=== PATIENT | male | born 1985 | race Caucasian/White ===

== ENCOUNTER 2023-08-23 20:03 | Emergency (ER) | payer BC ==
[~2023-08-23] VITALS: Ht 182.9 cm; Wt 93.0 kg
[2023-08-23 20:03] VITALS: BP 139/81; PULSE 115; RESP 20; TEMP 101; O2SAT 98
[2023-08-23] MEDS ORDERED: TORADOL IV STA (20:20)
[2023-08-23] MEDS ORDERED: TORADOL ONE (20:29)
[2023-08-23 20:36] LABS: BASOPHIL % 0.1 % (0.0-0.2); HEMATOCRIT(ML) 34.8 % (37.0-53.0); HEMOGLOBIN 12.1 g/dL (13.9-16.3); LYMPHOCYTES # 0.83 10^3/uL1 (1.0-4.8); LYMPHOCYTES % 11.2 % (24.0-44.0); MEAN CORP HGB 34.9 pg (26-34); MEAN CORP HGB CONCENTRATION 34.8 g/dL (33-36.5); MEAN CORP VOLUME 100.3 fL (78-100); MONOCYTES # 0.9 10^3/uL (0.3-0.8); MONOCYTES % 12.7 % (5.0-12.0); NEUTROPHIL # 5.6 10^3/uL (1.8-7.7); NEUTROPHILS % 75.9 % (41.0-85.0); PLATELET COUNT 244 10^3/uL (150-400); RED BLOOD CELL 3.47 10^6/uL (4.50-5.90); RED CELL DISTRIBUTION WIDTH 14.3 % (11.5-14.5); WHITE BLOOD CELL 7.4 10^3/uL (4.5-11.0)
[2023-08-23 20:37] LABS: +ADD MANUAL DIFF(NO CHRG) NO
[2023-08-23 20:52] LABS: INR 1.1
[2023-08-23 21:00] VITALS: BP 110/59; PULSE 102; RESP 20; O2SAT 98
[2023-08-23 21:00] LABS: ALBUMIN(ML) 3.9 g/dL (3.4-5.0); ALBUMIN/GLOBULIN RATIO 0.886; BUN/CREATININE RATIO 20.91 (10.0-20.0); CALCIUM 10.2 mg/dL (8.4-10.5); CARBON DIOXIDE 23.6 mmol/L (20.0-32); CREATININE SERUM 1.53 mg/dL (0.59-1.40); EST GFR, NON-AA 51.2 (>/=60); POTASSIUM 4.6 mmol/L (3.6-5.2)
[2023-08-23] MEDS ORDERED: NS 1000ML 1,000 ML STA (21:18)
[2023-08-23] MEDS ORDERED: NS 1000ML 1,000 ML ONE (21:22)
[2023-08-23] MEDS ORDERED: CIPRO 400MG/200ML 200 ML IV STA (21:30)
[2023-08-23] MEDS ORDERED: FLAGYL 500MG/ 100 ML NS 100 ML IV STA (21:30)
[2023-08-23] MEDS ORDERED: FLAGYL 500MG/ 100 ML NS 100 ML IV ONE (21:51)
[2023-08-23 22:08] VITALS: BP 120/57; PULSE 104; RESP 20; O2SAT 96
[2023-08-23] MEDS ORDERED: CIPRO 400MG/200ML 200 ML IV ONE (22:15)
[2023-08-23 22:33] LABS: BILIRUBIN,URINE NEGATIVE (NEGATIVE); LEUKOCYTE ESTERASE ,URINE NEGATIVE (NEGATIVE); NITRATE,URINE NEGATIVE (NEGATIVE); UROBILINOGEN,URINE 0.2 E.U./dL (0.2)
[2023-08-23 22:39] LABS: APPEARANCE,URINE CLEAR; UA COLOR YELLOW
[2023-08-23 23:00] VITALS: BP 118/74; PULSE 95; RESP 20; O2SAT 97
== END 2023-08-23 23:20 | disposition home or self-care (01) ==
LOC: ER 20:03
DX: K57.92 Diverticulitis of intestine, part unspecified, without perforation or abscess without bleeding (principal); E86.0 Dehydration; R91.8 Other nonspecific abnormal finding of lung field; E11.9 Type 2 diabetes mellitus without complications; E78.00 Pure hypercholesterolemia, unspecified; I10 Essential (primary) hypertension
CPT/HCPCS: 99285; 71250; 96365; 96375; 96366; 96368; 74177; 80053; 85025; 36415; 81001; 83690; 85610; 85730; J7030; J0744; J3490; J1885; Q9965

== ENCOUNTER 2023-08-25 17:54 | Emergency (ER) | payer BC ==
[~2023-08-25] VITALS: Ht 182.9 cm; Wt 87.5 kg
[2023-08-25] MEDS ORDERED: NS 1000ML 1,000 ML STA ×2 (18:09→18:44)
[2023-08-25] MEDS ORDERED: ZOFRAN IV STA (18:09)
[2023-08-25 18:10] VITALS: BP 107/52; PULSE 101; RESP 18; TEMP 98.7; O2SAT 99
[2023-08-25 18:21] LABS: BASOPHIL % 0.1 % (0.0-0.2); HEMATOCRIT(ML) 37.9 % (37.0-53.0); LYMPHOCYTES # 1.78 10^3/uL1 (1.0-4.8); LYMPHOCYTES % 12.6 % (24.0-44.0); MEAN CORP HGB 34.2 pg (26-34); MEAN CORP HGB CONCENTRATION 34.3 g/dL (33-36.5); MEAN CORP VOLUME 99.7 fL (78-100); MONOCYTES # 1.4 10^3/uL (0.3-0.8); MONOCYTES % 9.8 % (5.0-12.0); NEUTROPHIL # 10.9 10^3/uL (1.8-7.7); NEUTROPHILS % 77.2 % (41.0-85.0); PLATELET COUNT 282 10^3/uL (150-400); RED CELL DISTRIBUTION WIDTH 14.5 % (11.5-14.5); WHITE BLOOD CELL 14.1 10^3/uL (4.5-11.0)
[2023-08-25 18:22] LABS: +ADD MANUAL DIFF(NO CHRG) NO
[2023-08-25] MEDS ORDERED: NS 1000ML 1,000 ML ONE ×2 (18:22→19:00)
[2023-08-25] MEDS ORDERED: ZOFRAN ONE (18:22)
[2023-08-25 18:43] LABS: ANION GAP 25.7; BUN/CREATININE RATIO 9.03 (10.0-20.0); CALCIUM 10.2 mg/dL (8.4-10.5); CARBON DIOXIDE 15.5 mmol/L (20.0-32); CREATININE SERUM 4.98 mg/dL (0.59-1.40); EST GFR, NON-AA 13.1 (>/=60)
[2023-08-25 18:46] LABS: POTASSIUM 4.2 mmol/L (3.6-5.2)
[2023-08-25] MEDS ORDERED: MAGNESIUM SULFATE 50 ML IV STA (19:00)
[2023-08-25] MEDS ORDERED: MAGNESIUM SULFATE 50 ML IV ONE (19:01)
[2023-08-25] MEDS ORDERED: PROTONIX IV IV STA (19:16)
[2023-08-25] MEDS ORDERED: PROTONIX IV IV ONE (19:19)
== END 2023-08-25 20:29 | disposition short-term general hospital (02) ==
LOC: ER 17:54
DX: N17.9 Acute kidney failure, unspecified (principal); E11.9 Type 2 diabetes mellitus without complications; E86.0 Dehydration; I10 Essential (primary) hypertension
CPT/HCPCS: 99291; 96365; 70450; 96361; 96375; 99292; 71045; 85025; 36415; 80048; 84484; 93005; J7030 ×2; J3475; J2405; C9113

== ENCOUNTER 2024-05-10 04:05 | Observation (INO) | payer BC ==
[2024-05-10] VITALS (10 sets, daily range): BP systolic 95–148; BP diastolic 46–98; PULSE 71–90; RESP 16–20; TEMP 97.7–98.1; O2SAT 89–96
[~2024-05-10] VITALS: Ht 182.9 cm; Wt 93.0 kg
[2024-05-10] MEDS ORDERED: XYLOCAINE 1%-EPI 1:100,000 ONE (04:26)
[2024-05-10] MEDS: BOOSTRIX IM ONE (05:00)
[2024-05-10] MEDS: NS 1000ML 1,000 ML IV ONE (05:02)
[2024-05-10 05:14] LABS: BASOPHIL % 0.3 % (0.2-1.2); EOSINOPHIL # 0.2 10^3/uL (0.0-0.2); EOSINOPHIL % 2.4 % (0.0-5.0); HEMATOCRIT(ML) 38.2 % (37.0-53.0); HEMOGLOBIN 12.7 g/dL (13.9-16.3); LYMPHOCYTES # 3.38 10^3/uL1 (1.0-4.8); LYMPHOCYTES % 38.1 % (24.0-44.0); MEAN CORP HGB 35.2 pg (26-34); MEAN CORP HGB CONCENTRATION 33.2 g/dL (33-36.5); MEAN CORP VOLUME 105.8 fL (78-100); MONOCYTES # 0.7 10^3/uL (0.3-0.8); MONOCYTES % 7.9 % (5.0-12.0); NEUTROPHIL # 4.5 10^3/uL (1.8-7.7); NEUTROPHILS % 51.2 % (41.0-85.0); PLATELET COUNT 299 10^3/uL (150-400); RED BLOOD CELL 3.61 10^6/uL (4.50-5.90); RED CELL DISTRIBUTION WIDTH 12.8 % (11.5-14.5); WHITE BLOOD CELL 8.9 10^3/uL (4.5-11.0)
[2024-05-10 05:47] LABS: BILIRUBIN,URINE NEGATIVE (NEGATIVE); LEUKOCYTE ESTERASE ,URINE NEGATIVE (NEGATIVE); NITRATE,URINE NEGATIVE (NEGATIVE); PH,URINE 5.5 (4.5-8.0); UROBILINOGEN,URINE 0.2 E.U./dL (0.2)
[2024-05-10 05:55] LABS: APPEARANCE,URINE CLEAR; UA COLOR YELLOW
[2024-05-10 05:58] LABS: ALBUMIN(ML) 3.6 g/dL (3.4-5.0); ALBUMIN/GLOBULIN RATIO 0.8; BUN/CREATININE RATIO 9.87 (10.0-20.0); CALCIUM 9.1 mg/dL (8.4-10.5); CARBON DIOXIDE 24.6 mmol/L (20.0-32); CREATININE SERUM 3.95 mg/dL (0.59-1.40)
[2024-05-10 06:05] LABS: UAMPH METHAMP(SCRN) NEGATIVE (co1000ng/mL); UR MDMA (ECSTASY) SCRN NEGATIVE (c/o300ng/mL); UR METHADONE SCRN NEGATIVE (c/o300ng/mL); UR OPIATE SCRN NEGATIVE (c/o300ng/mL); UR PHENCYCLIDINE (PCP) SCRN NEGATIVE (c/o 25ng/mL); UR TETRAHYDROCANNABINOL SCRN NEGATIVE (c/o 50ng/mL)
[2024-05-10 06:14] LABS: ANION GAP 20.1; POTASSIUM 3.7 mmol/L (3.6-5.2)
[2024-05-10 06:16] LABS: +ADD MANUAL DIFF(NO CHRG) NO
[2024-05-10] MEDS ORDERED: ANCEF 2 GM/D5W 50ML 50 ML IV ONE (06:27)
[2024-05-10] MEDS: ANCEF IV STA ×2 (06:40→06:41)
[2024-05-10] MEDS ORDERED: ATOR10TA PO (09:50)
[2024-05-10] MEDS ORDERED: METF500T17 PO (09:50)
[2024-05-10] MEDS ORDERED: NEBI5TAB9 PO (09:50)
[2024-05-10] MEDS: LACTATED RINGERS 1,000 ML IV SCH (09:59)
[2024-05-10] MEDS: FOLIC ACID PO SCH (09:59)
[2024-05-10] MEDS: THIAMINE HCL PO SCH (09:59)
[2024-05-10] MEDS: MORPHINE SULFATE IV PRN (10:00)
[2024-05-10] MEDS ORDERED: APRESOLINE IV PRN (10:00)
[2024-05-10] MEDS ORDERED: ATIVAN IV PRN (10:00)
[2024-05-10] MEDS: LIBRIUM PO SCH (15:26)
[2024-05-10] MEDS: ULTRAM PO PRN (19:41)
[2024-05-10] MEDS: ZOFRAN IV PRN (19:56)
[2024-05-10] MEDS ORDERED: DILAUDID IV PRN (20:30)
[2024-05-10] MEDS ORDERED: DILAUDID 0.5 MG/0.5 ML SYRINGE ONE (21:12)
[2024-05-10] MEDS: DILAUDID 0.5 MG/0.5 ML SYRINGE IV PRN (21:18)
[2024-05-11 00:33] VITALS: BP 117/76; PULSE 75; RESP 18; TEMP 98.1; O2SAT 90
[2024-05-11 03:32] VITALS: BP 111/71; PULSE 69; RESP 18; TEMP 98.8; O2SAT 92
[2024-05-11 07:46] VITALS: BP 125/89; PULSE 71; RESP 18; TEMP 97.9; O2SAT 93
[2024-05-11 08:15] LABS: HEMATOCRIT(ML) 32.8 % (37.0-53.0); HEMOGLOBIN 11.1 g/dL (13.9-16.3); MEAN CORP HGB 35.5 pg (26-34); MEAN CORP HGB CONCENTRATION 33.8 g/dL (33-36.5); MEAN CORP VOLUME 104.8 fL (78-100); RED BLOOD CELL 3.13 10^6/uL (4.50-5.90); RED CELL DISTRIBUTION WIDTH 12.2 % (11.5-14.5)
[2024-05-11] MEDS: PROTONIX IV IV SCH (08:27)
[2024-05-11 08:31] LABS: ANION GAP 13.3; BUN/CREATININE RATIO 17.91 (10.0-20.0); CALCIUM 8.6 mg/dL (8.4-10.5); CARBON DIOXIDE 26.8 mmol/L (20.0-32); CREATININE SERUM 1.73 mg/dL (0.59-1.40); EST GFR, NON-AA 44.2 (>/=60); POTASSIUM 4.1 mmol/L (3.6-5.2)
[2024-05-11 11:25] VITALS: BP 130/86; PULSE 82; RESP 18; TEMP 97.7; O2SAT 93
[2024-05-11] MEDS ORDERED: Folic Acid PO (13:38)
[2024-05-11] MEDS ORDERED: Thiamine Hcl PO (13:38)
[2024-05-11] MEDS ORDERED: CHLO10CA5 PO (13:38)
[2024-05-11 15:10] VITALS: BP 130/86; PULSE 82; RESP 18; TEMP 97.7; O2SAT 93
== END 2024-05-11 15:10 | disposition home or self-care (01) ==
LOC: ER 04:05 → OBS 06:15 → EDBEDREQ 06:30 → EDBEDREQSVC 06:30
PROVIDERS: ADMIT Student in an Organized Health Care Education/Training Program; ATTEND Student in an Organized Health Care Education/Training Program
DX: S06.0X9A Concussion with loss of consciousness of unspecified duration, initial encounter (principal); S01.01XA Laceration without foreign body of scalp, initial encounter; F10.129 Alcohol abuse with intoxication, unspecified; K57.32 Diverticulitis of large intestine without perforation or abscess without bleeding; N17.9 Acute kidney failure, unspecified; E11.9 Type 2 diabetes mellitus without complications; I10 Essential (primary) hypertension; Z88.2 Allergy status to sulfonamides; Z79.899 Other long term (current) drug therapy; W19.XXXA Unspecified fall, initial encounter; Y93.01 Activity, walking, marching and hiking; Y92.89 Other specified places as the place of occurrence of the external cause; Y99.8 Other external cause status; Y90.7 Blood alcohol level of 200-239 mg/100 ml
CPT/HCPCS: 90471; 99291; 12004; 96361; 96375 ×2; 96376 ×2; 90715; 87086; 70450; 72125; 80053; 85025; 82948 ×5; 36415 ×2; 84484; 83605; 80307; 82077; 81001; 82010; 93005; 85027; 80048; G0378 ×33; J2270 ×2; J7030; J7120 ×4; J0690; J2405; J8499 ×2; J2470; 96374; C9113